=== PATIENT | female | born 2000 | race Caucasian/White ===

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

== ENCOUNTER 2023-12-24 02:11 | Emergency (ER) | payer OTHER ==
[~2023-12-24] VITALS: Ht 165.1 cm; Wt 95.3 kg
[2023-12-24 02:15] VITALS: BP_SYST 130; PULSE 83; RESP 18; TEMP 97.3; O2SAT 97
[2023-12-24 04:36] VITALS: BP_SYST 134; PULSE 85; RESP 18; TEMP 98.6; O2SAT 97
== END 2023-12-24 04:39 | disposition home or self-care (01) ==
LOC: SED 02:11
DX: K62.5 Hemorrhage of anus and rectum (principal); K64.4 Residual hemorrhoidal skin tags; Z88.0 Allergy status to penicillin
CPT/HCPCS: 99281